=== PATIENT | male | born 1965 | race Caucasian/White ===

== ENCOUNTER 2019-06-30 10:26 | Emergency (ER) | payer OTHER ==
[~2019-06-30] VITALS: Ht 177.8 cm; Wt 90.0 kg
[2019-06-30 11:15] LABS: BASOPHILS # (AUTO) 0.02 x10^3/uL (0-0.1); BASOPHILS % (AUTO) 0 % (0-1); EOSINOPHILS # (AUTO) 0.06 x10^3/uL (0-0.4); EOSINOPHILS % (AUTO) 1 % (1-7); LYMPHOCYTES # (AUTO) 1.94 x10^3/uL (1-3.4); LYMPHOCYTES % (AUTO) 38 % (22-44); MD NO; MEAN CORPUSCULAR HEMOGLOBIN 32.3 pg (27.5-34.5); MEAN CORPUSCULAR HGB CONC 34.3 g/dL (33.2-36.2); MEAN CORPUSCULAR VOLUME 94.3 fL (81-97); MEAN PLATELET VOLUME 7.4 fL (7.4-10.4); MONOCYTES # (AUTO) 0.53 x10^3/uL (0.2-0.8); MONOCYTES % (AUTO) 11 % (2-9); NEUTROPHILS # (AUTO) 2.53 x10^3/uL (1.8-6.8); NEUTROPHILS % (AUTO) 50 % (42-75); PLATELET COUNT 288 x10^3/uL (130-400); RED BLOOD COUNT 5.01 x10^6/uL (4.38-5.82)
--- NOTE | 2019-06-30 11:17 | NUR ---
PT TO ROOM 7 PER PEDIS. PT C/O RUQ PAIN THAT RADIATES TO RIGHT FLANK. PT HAS BEEN OFF AND ON FOR 3 MONTHS. PT HAS HX OF PANCREATITIS, AND DOES DRINK MORE THAN 3 BEERS PER NIGHT. PT IN GOWN, UA OBTIANED, IV STARTED, LAB DRAWN, CALL LIGHT GIVEN AND PLACED ON MONITOR.
[2019-06-30 11:29] LABS: ANION GAP 6 mmol/L (5-15); CALCIUM 8.8 mg/dL (8.5-10.1); CHLORIDE 100 mmol/L (98-107)
[2019-06-30 11:33] LABS: ALANINE AMINOTRANSFERASE 91 U/L (12-78); ALKALINE PHOSPHATASE 92 U/L (45-117); BILIRUBIN,TOTAL 1.6 mg/dL (0.2-1.0); CREATININE 1.06 mg/dL (0.7-1.3); TOTAL PROTEIN 8.2 g/dL (6.4-8.2)
[2019-06-30 11:37] LABS: MICROSCOPIC NOT IND
[2019-06-30 11:53] LABS: CULTURE INDICATED? NO
[2019-06-30] MEDS ORDERED: SODIUM CHLORIDE FLUSH 10ML SYR IVF ONE (12:00)
[2019-06-30] MEDS ORDERED: KETOROLAC 30 MG/1 ML IVPush ONE (12:00)
--- NOTE | 2019-06-30 13:40 | NUR ---
TASK RN. PT RESTING COMFORTABLY AT THIS TIME ON [facility]. DENIES NEEDS, VS UPDATED AND CHARTED
[2019-06-30 14:34] VITALS: BP 112/68
== END 2019-06-30 14:41 | disposition home or self-care (01) ==
LOC: ED 10:48
DX: R10.11 Right upper quadrant pain (principal); F10.10 Alcohol abuse, uncomplicated; K70.0 Alcoholic fatty liver; I10 Essential (primary) hypertension; Y90.0 Blood alcohol level of less than 20 mg/100 ml
CPT/HCPCS: 36415; 74176; 76700; 80053; 81003; 83690; 85025; 99285